=== PATIENT | female | born 1980 | race Caucasian/White ===

== ENCOUNTER 2017-04-30 21:48 | Emergency (ER) | payer BC ==
[2017-04-30 22:42] VITALS: RESP 16
[2017-04-30 22:49] VITALS: TEMP 97.7
--- NOTE | 2017-04-30 23:42 | CPEKG ---
Heart Rate: 79 RR Interval: 759 P-R Interval: 160 QRSD Interval: 90 QT Interval: 392 QTC Interval: 450 P Courtland: 41 QRS Courtland: 20 T Wave Courtland: 39 EKG Severity - NORMAL ECG - EKG Impression: SINUS RHYTHM Electronically Signed By: Dima Ji 02-May-2017 08:02:39
--- NOTE | 2017-04-30 23:42 | EDPHY ---
H & P Stated Complaint: c/o R sided chest pain radiating into back and sob, hx of pe Time Seen by Provider: 04/30/17 23:42 HPI/ROS: HPI: This is a 37-year-old female who presents with Chief Complaint:c/o R sided chest pain radiating into back and sob, hx of pe Location: Epigastric Quality: Sharp pain Duration: Last seen 2-4 hours Signs and Symptoms:+ right-sided chest pain, + diaphoresis, + shortness of breath, no fever, no chills, no nausea, no vomiting, no diarrhea Timing: Acute, improving Severity: 01/08 Context: Patient complains of sudden onset of epigastric and right-sided sharp , nonradiating, pain that started after eating dinner this evening. She admits to eating a large fatty meal. Has had indigestion in the past. She had history of pulmonary embolism diagnosed approximately 5 years ago; completed 6 months of anticoagulation. Her coag studies were sent off to [facility] and were normal per patient. Her risk factors at that time were long distance travel, control pills, tobacco use. She is no longer taking control pills. She did walk the dog earlier in the day and had no pain at that time. Modifying Factors: Comment: ROS: Constitutional: No fever, no chills, no weight loss Eyes: No blurred vision Respiratory: No shortness of breath, no cough Cardiovascular: No chest pain Gastrointestinal: No nausea, no vomiting no diarrhea Genitourinary: No dysuria Extremities: No myalgias Neurologic: No weakness, no numbness Skin: No rashes Hematologic: No bruising, no bleeding MEDICAL/SURGICAL/SOCIAL HISTORY: Medical history: c/o Right sided chest pain radiating into back and sob, hx of pe Surgical history: Denies Social history: CONSTITUTIONAL: Overweight pleasant well-appearing white female, awake and alert, no obvious distress HEENT: Atraumatic and normocephalic, PERRL, EOMI. Tympanic membranes clear. Oropharynx clear, no exudate and moist pink mucosa. Airway patent. No lymphadenopathy. No meningismus. Cardiovascular: Normal S1/S2, regular rate, regular rhythm, without murmur rub or gallop. PULMONARY/CHEST: Symmetrical and nontender. Clear to auscultation bilaterally. Good air movement. No accessory muscle usage. ABDOMEN: Soft, nondistended, mild epigastric tenderness, no rebound, no guarding, no peritoneal signs, no masses or organomegaly. No CVAT. EXTREMITIES: 2/2 pulses, no deformities, no clubbing, no cyanosis or edema. NEUROLOGICAL: no focal neuro deficits. GCS 15. SKIN: Warm and dry, no erythema. no rash. Good capillary refill. Source: Patient, Family Exam Limitations: No limitations - Medical/Surgical History Hx Asthma: Yes Hx Chronic Respiratory Disease: No Hx Diabetes: No Hx Cardiac Disease: No Hx Renal Disease: No Hx Cirrhosis: No Hx Alcoholism: No Hx HIV/AIDS: No Hx Splenectomy or Spleen Trauma: No Other PMH: PE, asthma - Social History Smoking Status: Current every day smoker Constitutional: Initial Vital Signs Temperature (C) 36.5 C 04/30/17 22:37 Heart Rate 81 04/30/17 22:37 Respiratory Rate 16 04/30/17 22:37 Blood Pressure 159/113 H 04/30/17 22:37 O2 Sat (%) 94 04/30/17 22:37 O2 Delivery Mode Room Air Allergies/Adverse Reactions: unk narc pain med Allergy (Uncoded 04/30/17 22:43) Home Medications: Medication Instructions Recorded Homeopathic Meds 01/23/13 Claritin 04/30/17 Ondansetron Odt [Zofran Odt 4 mg 4 mg PO Q4 PRN #12 tab 05/01/17 (*)] oxyCODONE/APAP 5/325 [Percocet 1 - 2 tab PO Q4H PRN #12 tab 05/01/17 5/325 (*)] Medical Decision Making - Diagnostics EKG Interpretation: 12 lead EKG: Indication: Abdominal pain Rhythm: Normal sinus rhythm, rate of 79 beats per minute Hazel: Normal Intervals: Normal QRS: Normal ST segments: Normal INTERPRETATION: Normal EKG. No acute ischemic changes. The 12 lead EKG was interpreted by myself and with attending. No EKG for comparison. Imaging Results: Imaging Impressions Abdomen Ultrasound 05/01/17 00:07 Impression: 1. Cholelithiasis, without cholecystitis or bile duct dilatation. 2. Nonvisualization of the pancreas and the mid-abdominal aorta secondary to obscuring by overlying bowel gas. 3. Hepatomegaly. Findings were discussed with Missy Curry PA-C at 0:52, on 05/01/2017. ED Course/Re-evaluation: EKG, chest x-ray, labs, 1 L normal saline, right upper quadrant ultrasound, IV and oral medications ordered Pain upon arrival was 2/10 Given GI cocktail with complete relief Mild leukocytosis noted; afebrile; no systemic signs. 0100: Called by Radiology Dr. Wright who advises right upper quadrant ultrasound shows cholelithiasis 11 mm stone near the neck of the gallbladder; no gallbladder wall thickening; no bile duct dilatation; no sludge; no radiographic Dela Cruz sign. Labs reviewed. No elevated LFTs are signs of obstructive pathology/acute kidney injury/electrolyte imbalance. D-dimer unremarkable. Urinalysis does not show infection Patient requesting to follow up outpatient. Patient is completely pain-free, competent, will be compliant on low-fat diet and will call Dr. Webster's office Tuesday for follow-up appointment this week. Differential Diagnosis: Abdominal pain including but not limited to appendicitis, cholecystitis, gastritis and urinary tract infection. Chest pain including but not limited to myocardial ischemia, pulmonary embolus, chest wall pain, pleural inflammation and pulmonary infectious causes. - Data Points Laboratory Results: Laboratory Results 04/30/17 23:40 04/30/17 23:40 05/01/17 04/30/17 04/30/17 00:47 23:40 23:40 WBC RBC Hgb Hct MCV MCH MCHC RDW Plt Count MPV Neut % (Auto) Lymph % (Auto) Morehouse % (Auto) Eos % (Auto) Baso % (Auto) Nucleat RBC Rel Count Absolute Neuts (auto) Absolute Lymphs (auto) Absolute Monos (auto) Absolute Eos (auto) Absolute Basos (auto) Absolute Nucleated RBC Immature Gran % Immature Gran # D-Dimer Sodium 137 mEq/L mEq/L (134-144) Potassium 4.4 mEq/L mEq/L (3.5-5.2) Chloride 103 mEq/L mEq/L (97-110) Carbon Dioxide 23 mEq/l mEq/l (22-31) Anion Gap 11 mEq/L mEq/L (8-16) BUN 14 mg/dL mg/dL (7-23) Creatinine 0.8 mg/dL mg/dL (0.6-1.0) Estimated GFR > 60 Glucose 112 mg/dL H mg/dL (70-100) Calcium 9.7 mg/dL mg/dL (8.5-10.4) Total Bilirubin 0.4 mg/dL mg/dL (0.1-1.4) Conjugated Bilirubin 0.3 mg/dL mg/dL (0.0-0.5) Unconjugated Bilirubin 0.1 mg/dL mg/dL (0.0-1.1) AST 28 IU/L IU/L (14-46) ALT 58 IU/L H IU/L (9-52) Alkaline Phosphatase 65 IU/L IU/L (38-126) Troponin I < 0.012 ng/mL ng/mL (0.000-0.034) Total Protein 7.7 g/dL g/dL (6.3-8.2) Albumin 4.1 g/dL g/dL (3.5-5.0) Lipase 83 IU/L IU/L (23-300) Beta HCG, Qual NEGATIVE Urine Color Pending Urine Appearance Pending Urine pH Pending Ur Specific [place] Pending Urine Protein Pending Urine Ketones Pending Urine Blood Pending Urine Nitrate Pending Urine Bilirubin Pending Urine Urobilinogen Pending Ur Leukocyte Esterase Pending Urine Glucose Pending 04/30/17 04/30/17 23:40 23:40 WBC 13.34 10^3/uL H 10^3/uL (3.80-9.50) RBC 5.56 10^6/uL H 10^6/uL (4.18-5.33) Hgb 16.5 g/dL H g/dL (12.6-16.3) Hct 48.5 % H % (38.0-47.0) MCV 87.2 fL fL (81.5-99.8) MCH 29.7 pg pg (27.9-34.1) MCHC 34.0 g/dL g/dL (32.4-36.7) RDW 12.6 % % (11.5-15.2) Plt Count 318 10^3/uL 10^3/uL (150-400) MPV 10.2 fL fL (8.7-11.7) Neut % (Auto) 65.7 % % (39.3-74.2) Lymph % (Auto) 25.0 % % (15.0-45.0) Morehouse % (Auto) 3.7 % L % (4.5-13.0) Eos % (Auto) 4.7 % % (0.6-7.6) Baso % (Auto) 0.5 % % (0.3-1.7) Nucleat RBC Rel Count 0.0 % % (0.0-0.2) Absolute Neuts (auto) 8.75 10^3/uL H 10^3/uL (1.70-6.50) Absolute Lymphs (auto) 3.34 10^3/uL H 10^3/uL (1.00-3.00) Absolute Monos (auto) 0.50 10^3/uL 10^3/uL (0.30-0.80) Absolute Eos (auto) 0.63 10^3/uL H 10^3/uL (0.03-0.40) Absolute Basos (auto) 0.07 10^3/uL 10^3/uL (0.02-0.10) Absolute Nucleated RBC 0.00 10^3/uL 10^3/uL (0-0.01) Immature Gran % 0.4 % % (0.0-1.1) Immature Gran # 0.05 10^3/uL 10^3/uL (0.00-0.10) D-Dimer 0.44 ug/mLFEU ug/mLFEU (0.00-0.50) Sodium Potassium Chloride Carbon Dioxide Anion Gap BUN Creatinine Estimated GFR Glucose Calcium Total Bilirubin Conjugated Bilirubin Unconjugated Bilirubin AST ALT Alkaline Phosphatase Troponin I Total Protein Albumin Lipase Beta HCG, Qual Urine Color Urine Appearance Urine pH Ur Specific [place] Urine Protein Urine Ketones Urine Blood Urine Nitrate Urine Bilirubin Urine Urobilinogen Ur Leukocyte Esterase Urine Glucose Medications Given: Discontinued Medications Al Hydroxide/Mg Hydroxide (Maalox Susp) 30 ml PO ONCE ONE Stop: 04/30/17 23:50 Last Admin: 04/30/17 23:55 Dose: 30 ml Hyoscyamine Sulfate (Levsin, Hyomax-Sl) 0.25 mg PO ONCE ONE Stop: 04/30/17 23:50 Last Admin: 04/30/17 23:55 Dose: 0.25 mg Sodium Chloride (Ns) 1,000 mls @ 0 mls/hr IV ONCE ONE; Wide Open PRN Reason: Protocol Stop: 05/01/17 00:34 Last Admin: 05/01/17 00:45 Dose: 1,000 mls Lidocaine (Lidocaine 2% Viscous) 15 ml PO ONCE ONE Stop: 04/30/17 23:50 Last Admin: 04/30/17 23:55 Dose: 15 ml Departure - Departure Disposition: Home, Routine, Self-Care Clinical Impression: Biliary colic Cholelithiasis Qualifiers: Cholelithiasis location: gallbladder Cholecystitis presence: without cholecystitis Biliary obstruction: without biliary obstruction Qualified Code(s) : K80.20 - Calculus of gallbladder without cholecystitis without obstruction Condition: Good Instructions: Biliary Colic (ED), Gallstones (ED), Low Fat Diet (ED) Additional Instructions: Eat healthy low-fat diet. Take pain medications and antiemetics as needed. Please call general surgery for follow-up within the next week at which time they will recommend conservative management vs. surgery. Referrals: Francisco Webster MD [Medical Doctor] - As per Instructions Prescriptions: Ondansetron Odt [Zofran Odt 4 mg (*)] 4 mg PO Q4 PRN #12 tab PRN Reason: Nausea/Vomiting, Use 1st oxyCODONE/APAP 5/325 [Percocet 5/325 (*)] 1 - 2 tab PO Q4H PRN #12 tab PRN Reason: Pain, Severe
[2017-04-30] MEDS ORDERED: LIDOCAINE 2% VISCOUS 15 ML UDCUP PO ONE (23:49)
[2017-04-30] MEDS ORDERED: HYOSCYAMINE SULFATE 0.125 MG TAB PO ONE (23:49)
[2017-04-30] MEDS ORDERED: MAG HYDROX/AL HYDROX/SIMETH 30 ML UDCUP PO ONE (23:49)
[2017-04-30 23:51] LABS: % IMMATURE GRANULYOCYTES 0.4 % (0.0-1.1); ABSOLUTE IMMATURE GRANULOCYTES 0.05 10^3/uL (0.00-0.10); ADD DIFF? NO; ADD MORPH? NO; ADD SCAN? NO; ATYPICAL LYMPHOCYTE FLAG 0 (0-99); FRAGMENT RBC FLAG 0 (0-99); HEMATOCRIT 48.5 % (38.0-47.0); HEMOGLOBIN 16.5 g/dL (12.6-16.3); LEFT SHIFT FLG 0 (0-99); LIPEMIA HEMOLYSIS FLAG 90 (0-99); MEAN CELL HEMOGLOBIN 29.7 pg (27.9-34.1); MEAN CELL VOLUME 87.2 fL (81.5-99.8); MEAN PLATELET VOLUME 10.2 fL (8.7-11.7); PLATELET CLUMPS FLAG 10 (0-99); PLATELET COUNT 318 10^3/uL (150-400); RED BLOOD CELL COUNT 5.56 10^6/uL (4.18-5.33); RED CELL DISTRIBUTION WIDTH 12.6 % (11.5-15.2)
[2017-05-01 00:06] LABS: ALANINE AMINOTRANSFERASE 58 IU/L (9-52); ALBUMIN 4.1 g/dL (3.5-5.0); ALKALINE PHOSPHATASE 65 IU/L (38-126); ANION GAP 11 mEq/L (8-16); ASPARTATE AMINOTRANSFERASE 28 IU/L (14-46); BILIRUBIN,TOTAL 0.4 mg/dL (0.1-1.4); BILIRUBIN-CONJUGATED 0.3 mg/dL (0.0-0.5); BILIRUBIN-UNCONJUGATED 0.1 mg/dL (0.0-1.1); CALCIUM 9.7 mg/dL (8.5-10.4); CARBON DIOXIDE 23 mEq/l (22-31); CHLORIDE 103 mEq/L (97-110); CREATININE 0.8 mg/dL (0.6-1.0); GLOMERULAR FILTRATION RATE > 60; GLUCOSE 112 mg/dL (70-100); POTASSIUM 4.4 mEq/L (3.5-5.2); SODIUM 137 mEq/L (134-144); TOTAL PROTEIN 7.7 g/dL (6.3-8.2)
[2017-05-01 00:17] LABS: TROPONIN I < 0.012 ng/mL (0.000-0.034)
[2017-05-01] MEDS ORDERED: NS 1,000 ML IV ONE (00:33)
[2017-05-01 00:40] VITALS: PULSE 72; O2SAT 93
[2017-05-01 00:50] VITALS: BP 158/83
[2017-05-01 00:56] LABS: COLOR PALE YELLOW; LEUKOCYTE ESTERASE,URINE NEGATIVE (NEGATIVE); NITRITE,URINE NEGATIVE (NEGATIVE)
[2017-05-01] MEDS ORDERED: OXYCODONE/APAP 5/325MG PREPACK#4 BTL TAKEHOME ONE (01:23)
[2017-05-01] MEDS ORDERED: ONDANSETRON 4MG PREPACK#2 BTL TAKEHOME ONE (01:23)
== END 2017-05-01 01:31 | disposition home or self-care (01) ==
DX: K80.70 Calculus of gallbladder and bile duct without cholecystitis without obstruction (principal); J45.909 Unspecified asthma, uncomplicated; F17.200 Nicotine dependence, unspecified, uncomplicated; E86.9 Volume depletion, unspecified

== ENCOUNTER 2017-06-16 05:39 | Day surgery (SDC) | payer BC ==
--- NOTE | 2017-06-15 19:12 | PDGENHP ---
History and Physical - Chief Complaint abdominal pain - History of Present Illness 37yo referred from ED with Hx of abdominal pain. Was seen in the [facility] ED in May for abdominal pain. At that time, US showed a stone which was near the neck. Her symptoms are worse with fatty foods. She has abstained from fatty foods and has since felt well. History Information - Allergies/Home Medication List Allergies/Adverse Reactions: unk narc pain med Allergy (Uncoded 04/30/17 22:43) I have personally reviewed and updated: family history, medical history, social history, surgical history Past Medical History: PE - Surgical History Additional surgical history: Hx of skin graft - Family History Positive for: non-pertinent - Social History Smoking Status: Light smoker Review of Systems Review of Systems: ROS: 10pt was reviewed & negative except for what was stated in HPI & below Physical Exam Physical Exam: Constitutional: no apparent distress, appears nourished, not in pain Eyes: PERRL, anicteric sclera, EOMI Ears, Nose, Mouth, Throat: moist mucous membranes, hearing normal, ears appear normal, no oral mucosal ulcers Cardiovascular: regular rate and rhythym, no murmur, rub, or gallop, No edema Respiratory: no respiratory distress, no rales or rhonchi, clear to auscultation Gastrointestinal: normoactive bowel sounds, soft, non-tender abdomen, no palpable masses Genitourinary: no bladder fullness, no bladder tenderness Skin: warm, normal color, no rashes or abrasions, no fluctuance, no induration, No mottled Musculoskeletal: full muscle strength, no muscle tenderness, normal joint ROM, no joint effusions Psychiatric: interacting appropriately, not anxious, not encephalopathic, thought process linear Lymph, Heme, Immunologic: no cervical LAD, no supraclavicular LAD Lab Data & Imaging Review Visualized and Interpreted imaging results: Yes Interpretation: US: stones, no GBW thickening, normal duct. Assessment & Plan Assessment: 37yo F c Recurrent biliary colic Plan: to OR for lap patti RBDillan discussed. No cholangiogram
[2017-06-16] MEDS ORDERED: ceFAZolin 2 GM/SWFI 2 GM/20 ML SYR IVP ONE (05:52)
[2017-06-16] MEDS ORDERED: LR 1,000 ML IV ONE (05:53)
[2017-06-16] MEDS ORDERED: LIDOCAINE 1% 2 ML INJ ID PRN (05:53)
[2017-06-16 06:29] VITALS: PULSE 79
[2017-06-16] MEDS ORDERED: MIDAZOLAM 2 MG/2 ML VIAL IVP ONE (06:56)
--- NOTE | 2017-06-16 06:56 | PDANEPAE ---
ANE History of Present Illness presents for lap ccy ANE Past Medical History - Cardiovascular History Hx Hypertension: No Hx Arrhythmias: No Hx Chest Pain: No Hx Coronary Artery / Peripheral Vascular Disease: No Hx CHF / Valvular Disease: No Hx Palpitations: No Cardiovascular History Comment: BORDERLINE ELEV BP. HX - DVT/PE 2013 (POSS BCP RELATED) - Pulmonary History Hx COPD: No Hx Asthma/Reactive Airway Disease: Yes Hx Recent Upper Respiratory Infection: No Hx Oxygen in Use at Home: No Hx Sleep Apnea: No Sleep Apnea Screening Result - Last Documented: Positive Pulmonary History Comment: ASTHMA - ALLERGIES/EXERCISE INDUCED - NO INHALERS. HX - DVT/PE 2013 - Neurologic History Hx Cerebrovascular Accident: No Hx Seizures: No Hx Dementia: No - Endocrine History Hx Diabetes: No Obesity: yes, moderate - Renal History Hx Renal Disorders: No - Liver History Hx Hepatic Disorders: No Hepatic History Comment: RECENT GALL BLADDER GAS AND ABD PAIN - GALL STONE - Neurological & Psychiatric Hx Hx Neurological and Psychiatric Disorders: No - Cancer History Hx Cancer: No - Congenital Disorder History Hx Congenital Disorders: No - GI History GERD: no Hx Gastrointestinal Disorders: No - Other Health History Other Health History: HISTORY OF DVT RLE CALF (BCPs) MOVED TO OVER 6 MONTH PERIOD. ON ANTICOAG - COUMADIN AND WAS HOSPITALIZED X ONE WEEK - Chronic Pain History Chronic Pain: No - Surgical History Prior Surgeries: NONE ANE Review of Systems Review of systems is: negative Review of Systems: - Exercise capacity METS (RN): 4 METS ANE Patient History - Allergies Allergies/Adverse Reactions: unk narc pain med Allergy (Uncoded 04/30/17 22:43) - Home Medications Home medications: home medication list seen and reviewed - NPO status NPO Since - Liquids (Date): 06/15/17 NPO Since - Liquids (Time): 22:00 NPO Since - Solids (Date): 06/15/17 NPO Since - Solids (Time): 21:00 - Anes Hx Anes Hx: no prior problems - Smoking Hx Smoking Status: Light smoker - Family Anes Hx Family Hx Anesthesia Complications: NONE ANE Labs/Vital Signs - Vital Signs Blood Pressure: 138/104 Heart Rate: 79 Respiratory Rate: 16 O2 Sat (%): 92 Height: 173.99 cm Weight: 120.202 kg ANE Physical Exam - Airway Neck exam: FROM Mallampati Score: Class 1 Mouth exam: normal dental/mouth exam - Pulmonary Pulmonary: no respiratory distress - Cardiovascular Cardiovascular: regular rate and rhythym - ASA Status ASA Status: III ANE Anesthesia Plan Anesthesia Plan: general endotracheal anesthesia Specialized Airway: video laryngoscope
[2017-06-16] MEDS ORDERED: fentaNYL 250 MCG/5 ML INJ ONE (07:01)
[2017-06-16] MEDS ORDERED: PROPOFOL 200 MG/20 ML VIAL ONE ×2 (07:01)
[2017-06-16] MEDS ORDERED: LIDOCAINE 2% 5 ML SDV ONE (07:02)
[2017-06-16] MEDS ORDERED: ROCURONIUM 100 MG/10 ML VIAL ONE (07:02)
--- NOTE | 2017-06-16 07:02 | PDHPUP ---
History & Physical Update H&P update statement: This history and physical update is based on an assessment of the patient which was completed after admission or registration (within 24 hours), but prior to the surgery/procedure. H&P update: H&P reviewed & patient examined, no change in patient's condition since H&P completed
[2017-06-16] MEDS ORDERED: BUPIVACAINE 0.25% 30 ML SDV ONE (07:06)
[2017-06-16] MEDS ORDERED: ONDANSETRON 4 MG/2 ML VIAL ONE (07:45)
[2017-06-16] MEDS ORDERED: DEXAMETHASONE 4 MG/ML VIAL ONE (07:45)
[2017-06-16] MEDS ORDERED: KETOROLAC 30 MG/1 ML SDV ONE (07:45)
[2017-06-16] MEDS ORDERED: SUGAMMADEX SODIUM 200 MG/2 ML VIAL IVP ONE (07:45)
[2017-06-16] MEDS ORDERED: ACETAMINOPHEN 500 MG TAB PO PRN (07:51)
[2017-06-16] MEDS ORDERED: PROMETHAZINE HCL 25 MG/ML INJ IVP PRN (07:51)
[2017-06-16] MEDS ORDERED: ALBUTEROL 3 ML DEYVIAL IH PRN (07:51)
[2017-06-16] MEDS ORDERED: ONDANSETRON 4 MG/2 ML VIAL IVP PRN (07:51)
[2017-06-16] MEDS ORDERED: LR 500 ML IV PRN (07:51)
[2017-06-16] MEDS ORDERED: HYDROmorphONE/DILAUDID 1 MG/ML INJ IVP PRN (07:51)
[2017-06-16] MEDS ORDERED: NALOXONE HCL 0.4 MG/ML INJ IVP PRN (07:51)
[2017-06-16] MEDS ORDERED: fentaNYL 100 MCG/2 ML INJ IVP PRN (07:51)
[2017-06-16] MEDS ORDERED: LABETALOL HCL 50 MG/10 ML SYR IVP PRN (07:51)
--- NOTE | 2017-06-16 08:06 | POSTOPPROG ---
Post Op Note Date of Operation: 06/16/17 Surgeon: Francisco Webster Anesthesiologist: Meghan Anesthesia: GET(General Endotracheal) Pre-op Diagnosis: Biliary Colic Post-op Diagnosis: Chronic cholecystitis Procedure: Lap Tiff Findings: Edematous wall, critical view Inf/Abcess present in the surg proc area at time of surgery?: No EBL: Minimal Specimen(s): gallbladder
--- NOTE | 2017-06-16 08:17 | POSTANESTH ---
Post Anesthetic Evaluation Cardiovascular Status: Normal, Stable Respiratory Status: Normal, Stable Level of Consciousness/Mental Status: Can Participate in Eval Pain Control: Adequate, Prn Tx Ordered Nausea/Vomiting Control: Adequate, Prn Tx Ordered Complications Possibly Related to Anesthesia: None Noted
[2017-06-16 08:28] VITALS: TEMP 97.3
[2017-06-16] MEDS ORDERED: fentaNYL 100 MCG/2 ML INJ ONE (08:41)
[2017-06-16] MEDS ORDERED: LABETALOL HCL 5 MG/ML 20 ML MDV ONE (09:47)
[2017-06-16 09:57] VITALS: RESP 19; O2SAT 90
[2017-06-16 10:11] VITALS: BP 128/89
--- NOTE | 2017-06-17 16:18 | GOP ---
[f rep st] OPERATIVE REPORT DATE OF OPERATION: 06/16/2017 SURGEON: Francisco Webster MD EXECUTIVE DIRECTOR [employer]: None. ANESTHESIA: General endotracheal. ANESTHESIOLOGIST: Dr. Christianson. PREOPERATIVE DIAGNOSIS: Biliary colic. POSTOPERATIVE DIAGNOSIS: Chronic cholecystitis. PROCEDURE PERFORMED: Laparoscopic cholecystectomy. FINDINGS: Edematous gallbladder wall. Critical view obtained. SPECIMENS: Gallbladder. ESTIMATED BLOOD LOSS: 5 cc. DESCRIPTION OF PROCEDURE: The patient was greeted in the preoperative suite. Once again, risks, goran efits, and alternatives were discussed. Consent was signed. She was then brought back to the operat cornelia suite, placed on the OR table in supine position. After all anesthesia machines, including SCDs, were on and functioning, a World Health Organization time-out was performed. After successful induction of general anesthesia, the patient's abdomen was prepped and draped in typ ical sterile fashion. Antibiotics were given on-call to the operating room. After successful drapin g, I entered the abdomen via an infraumbilical cutdown through which the Veress needle was passed. I achieved pneumoperitoneum to 15 mmHg CO2, which was well tolerated by the patient. Through this inc ision, I inserted a 10 mm Visiport. Once successfully in the abdomen, I placed 3 additional 5 mm tro cars, 1 in the subxiphoid, 2 in the right upper quadrant, all under direct visualization. I successf ully retracted the gallbladder over the liver edge, and began dissecting at the infundibulum using a combination of blunt dissection and electrocautery. After complete skeletonization of the infundibul um, I identified 2 and only 2 structures leading toward the gallbladder proper with a clear view of t he hepatic plate posteriorly. Once this was done, I clipped both the artery and the duct, 2 on the s [place] side, 1 on the specimen side, and successfully divided them with marti. The gallbladder was the n taken off the liver bed with electrocautery. It was then placed in EndoCatch bag and removed. Hem ostasis in the liver bed was noted to be excellent. My clips were in appropriate position. I instil led local anesthesia in all port sites which were then removed under direct visualization. Prior to evacuation of pneumoperitoneum, however, I did close my infraumbilical site with 0 Vicryl stitch in tonja the Jose Luis-Thomasen fascial closure device. The skin was then closed with running 4-0 Monocryl ove r which Dermabond was placed. The patient was then extubated in the operative suite and taken to the PACU in satisfactory condition. DRAINS: None. COUNTS: All counts were reported as correct x2. /[id number]/MODL
== END 2017-06-16 10:36 | disposition home or self-care (01) ==
LOC: FSGY 05:39
PROVIDERS: ATTEND Surgery
PROC: 0FT44ZZ Resection of Gallbladder, Percutaneous Endoscopic Approach (ICD-10-PCS; principal; 2017-06-16 07:15)
DX: K80.10 Calculus of gallbladder with chronic cholecystitis without obstruction (principal); Z86.718 Personal history of other venous thrombosis and embolism; Z72.0 Tobacco use
CPT/HCPCS: J0690; J1100; J1885; J2250; J2405; J2704; J3010; J3490

== ENCOUNTER → 2017-11-22 | Outpatient (CLI) | payer BC | LOC: FIMAGING 12:29 | PROVIDERS: ATTEND Obstetrics & Gynecology | DX: O99.212 Obesity complicating pregnancy, second trimester (principal); O09.522 Supervision of elderly multigravida, second trimester; Z3A.20 20 weeks gestation of pregnancy; Z79.01 Long term (current) use of anticoagulants; Z86.718 Personal history of other venous thrombosis and embolism; Z86.711 Personal history of pulmonary embolism ==

== ENCOUNTER → 2017-12-20 | Outpatient (CLI) | payer BC | LOC: FIMAGING 15:12 | PROVIDERS: ATTEND Obstetrics & Gynecology | DX: O09.522 Supervision of elderly multigravida, second trimester (principal); O99.212 Obesity complicating pregnancy, second trimester; I26.99 Other pulmonary embolism without acute cor pulmonale; Z3A.24 24 weeks gestation of pregnancy ==

== ENCOUNTER → 2018-01-24 | Outpatient (CLI) | payer BC | LOC: FIMAGING 14:50 | PROVIDERS: ATTEND Obstetrics & Gynecology | DX: O09.523 Supervision of elderly multigravida, third trimester (principal); O24.419 Gestational diabetes mellitus in pregnancy, unspecified control; O99.89 Other specified diseases and conditions complicating pregnancy, childbirth and the puerperium; Z3A.29 29 weeks gestation of pregnancy; Z86.718 Personal history of other venous thrombosis and embolism; Z86.711 Personal history of pulmonary embolism ==

== ENCOUNTER → 2018-02-03 | Outpatient (CLI) | payer BC | LOC: FIMAGING 16:56 | PROVIDERS: ATTEND Obstetrics & Gynecology | DX: R60.0 Localized edema (principal); Z3A.30 30 weeks gestation of pregnancy; Z86.718 Personal history of other venous thrombosis and embolism ==

== ENCOUNTER → 2018-06-13 | Outpatient (CLI) | payer BC ==
[~2018-06-13] MED LIST: IOPAMIDOL (ISOVUE 370) 100 ML BTL IV ONE
== END ==
LOC: FIMAGING 08:36
DX: I10 Essential (primary) hypertension (principal)
CPT/HCPCS: 82565-PO; Q9967